=== PATIENT | female | born 1960 | race Caucasian/White ===

== ENCOUNTER 2018-02-28 15:31 | Emergency (ER) | payer OTHER ==
[2018-02-28 15:59] LABS: ADD MAN DIFF? NO
[2018-02-28 16:03] LABS: BASOPHILS % 0.6 % (0.0-2.0); EOSINOPHILS # 0.1 10^3/ul (0.0-0.5); EOSINOPHILS % 1.9 % (0.0-7.0); HEMATOCRIT 37.8 % (37.0-47.0); HEMOGLOBIN 12.7 g/dl (12.0-16.0); LYMPHOCYTES # 1.7 10^3/ul (0.8-2.9); LYMPHOCYTES % 24.7 % (15.0-51.0); MEAN CORPUSCULAR HEMOGLOBIN 31.2 pg (29.0-33.0); MEAN CORPUSCULAR HGB CONC 33.6 g/dl (32.0-37.0); MEAN CORPUSCULAR VOLUME 92.9 fl (82.0-101.0); MONOCYTE # 0.6 10^3/ul (0.3-0.9); MONOCYTES % 8.2 % (0.0-11.0); NEUTROPHIL # 4.4 10^3/ul (1.6-7.5); NEUTROPHILS % 64.2 % (39.0-77.0); PLATELET COUNT 220 10^3/UL (140-415); RED BLOOD COUNT 4.07 10^6/ul (4.20-5.40); RED CELL DISTRIBUTION WIDTH 12.7 % (11.5-14.5)
[2018-02-28 16:03] LABS: WHITE BLOOD COUNT 6.9 10^3/ul (4.8-10.8)
[2018-02-28] MEDS: NITROGLYCERIN 2% 1 GM OINT PKT TD (16:11)
[2018-02-28] MEDS: SOD CHLORIDE 0.9% 1,000 ML IV (16:12)
[2018-02-28] MEDS: NITROGLYCERIN (SL) 0.4 MG TAB SL (16:16)
[2018-02-28] MEDS: ASPIRIN 81 MG TAB PO (16:16)
[2018-02-28 16:21] LABS: ANION GAP 13 (8-16); BLOOD UREA NITROGEN 13 mg/dl (7-20); CALCIUM 9.4 mg/dl (8.4-10.2); CARBON DIOXIDE 23 mmol/L (21-31); CHLORIDE 105 mmol/L (97-110); GLUCOSE 329 mg/dl (70-220); POTASSIUM 4.2 mmol/L (3.5-5.1); SODIUM 137 mmol/L (135-144)
[2018-02-28 16:33] LABS: TROPONIN-I < 0.010 ng/ml (0.000-0.120)
== END 2018-02-28 18:07 | disposition home or self-care (01) ==
LOC: E/R 15:31
DX: E11.65 Type 2 diabetes mellitus with hyperglycemia (principal); Z79.84 Long term (current) use of oral hypoglycemic drugs
CPT/HCPCS: 36415; 71045; 80048; 82962; 84484; 85025; 93005; 99285-25